=== PATIENT | female | born 2000 | race Two or more races ===

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

== ENCOUNTER 2022-01-30 02:05 | Emergency (ER) | payer SELFPAY ==
[~2022-01-30] VITALS: Ht 162.6 cm; Wt 79.0 kg
[2022-01-30 02:45] VITALS: BP 122/70
[2022-01-30] MEDS ORDERED: LIDOCAINE HCL 1% 20ML VIAL (Pyxis) INJ INFIL ONE (03:00)
[2022-01-30] MEDS ORDERED: CEFTRIAXONE SODIUM 500 MG/VIAL IM ONE (03:00)
[2022-01-30] MEDS ORDERED: DOXY100C5 MT (03:50)
[2022-01-30] MEDS ORDERED: LEVO1.5T37 MT (03:50)
[2022-02-01 07:17] LABS: NEISSERIA GONORRHOEAE NAA Negative (Negative)
== END 2022-01-30 03:55 | disposition home or self-care (01) ==
LOC: ER 02:32
DX: N89.8 Other specified noninflammatory disorders of vagina (principal); A64 Unspecified sexually transmitted disease
CPT/HCPCS: 81025; 87491; 87591; 96372; 99283; J0696; J3490